=== PATIENT | male | born 2005 | race Caucasian/White ===

== ENCOUNTER 2024-05-09 19:41 | Emergency (ER) | payer MEDICAID, SELFPAY ==
[2024-05-09 19:44] VITALS: BP 119/76; PULSE 81; RESP 18; TEMP 36.6; O2SAT 97; BMI 27.4
--- NOTE | 2024-05-09 20:03 | ED_ITS ---
HPI - Ear Problem General Chief complaint: Ear Problems Stated complaint: R ear clogged Time Seen by Provider: 05/09/24 20:07 Source: patient Mode of arrival: ambulatory Limitations: no limitations History of Present Illness HPI Narrative: Patient is a 18-year-old male who presents to emergency department for evaluation of right ear feeling clogged for 2 days. Has been inserting Q-tips, purchased a your [place] kit from the pharmacy with a plastic curette, but has been unable to clear the ear. No pain. Related Data Previous Rx's ?Medication ?Instructions ?Recorded carbamide peroxide 6.5 % ear drops 5 drp otic (ear) right DAILY 4 05/09/24 (Ear Drops (carbamide peroxide)) days #15 mL Allergies Allergy/AdvReac Type Severity Reaction Status Date / Time No Known Allergies Allergy Verified 05/09/24 19:46 Review of Systems Review of Systems: Yes all other systems are reviewed and are negative PMFSH Past Medical History Attestation statement: The following information was validated with the patient. Source: old records reviewed Social History Social History Do you have a plan to hurt others: No Plan Physical Exam Vital Signs: Vital Signs: Last Vital Signs Temp 98.0 F 05/09/24 20:48 Pulse 72 05/09/24 20:48 Resp 16 05/09/24 20:48 BP 127/65 05/09/24 20:48 Pulse Ox 97 05/09/24 20:48 O2 Del Method Room Air 05/09/24 20:48 BMI result Body Mass Index 27.4 Appearance: Alert.?Oriented to person, place and time. No acute distress.?Normal affect. Eyes: Pupils equal, round and reactive to light.? ENT: Cerumen impaction on the right, no mastoid tenderness. Left TM normal. Neck: Normal inspection.? Neck supple.?? CVS: Heart sounds normal. Normal heart rate and rhythm.? Pulses normal.?? Respiratory: No respiratory distress.? Lung sounds clear to auscultation bilaterally? Skin: Skin warm and dry.? Normal skin color.? Neuro: Moves all extremities spontaneously. Sensation intact bilaterally. Ambulates with normal steady gait. Medications Administered Discontinued Medications Generic Name Dose Route Start Last Admin Trade Name Freq PRN Reason Stop Dose Admin Docusate Sodium 100 mg 05/09/24 20:05 05/09/24 20:10 Docusate Sodium 100 Mg/10 Ml Liquid PO 05/09/24 20:06 100 mg ONCE ONE Administration Medical Decision Making Medical Decision Making [facility] Narrative: Patient is a 18 year male who presents emergency department for evaluation of a clogged sensation to his right as per HPI. On exam cerumen impaction, was unable to alleviate this at home with wax removal kit. Liquid Colace was instilled into the right external ear canal followed by subsequent irrigation on multiple attempts. Unable to remove the cerumen impaction. Unable to access with a curette readily due to the depth., the waxes remains very firm despite cerumenolytic attempt. Patient to be discharged home with Debrox drops to take as prescribed and follow-up with primary care doctor's office for further treatment.. Differential Diagnosis Differential Diagnoses: The differential diagnosis associated with the presentation includes (Cerumen impaction, AOM,) External Record Review External record reviewed: Outpatient record Prescription Management I considered prescription management with: Other (See narrative above) Discharge Plan Discharge Clinical Impression: Cerumen impaction Patient Disposition: Home, Self-Care Additional Instructions: As discussed, use the Debrox ear drops as prescribed. Do not insert anything into the ear canal such as Q-tips or any tools as this may further push down the ball of wax that is present. Contact your primary care doctor's office first thing Sunday morning to schedule a follow-up appointment, they may then tried to beat the ER again Prescriptions: New Ear Drops (carbamide peroxide) 6.5 % drops 5 drp otic (ear) right DAILY 4 Days Qty: 15 0RF Referrals: Maggy Fu MD [Primary Care Provider] - Print Language: Panamanian
[2024-05-09] MEDS: Docusate Sodium 100 MG/10 ML LIQUID PO (20:10)
--- NOTE | 2024-05-09 20:12 | PC.NURSE ---
Assumed care of pt. Applied Colace to ear canal per orders, plugged ear with cotton. Plan for provider to clean ear canal in triage, with DC.
[2024-05-09 20:48] VITALS: BP 127/65; PULSE 72; RESP 16; TEMP 36.7; O2SAT 97
[2024-05-09 21:34] VITALS: BP 127/65; PULSE 72; RESP 16; TEMP 36.7; O2SAT 97
== END 2024-05-09 21:35 | disposition home or self-care (01) ==
PROVIDERS: Emergency Provider Internal Medicine; PCP Pediatrics
DX: H92.01 Otalgia, right ear (principal); H61.21 Impacted cerumen, right ear
CPT/HCPCS: 99283

== ENCOUNTER 2024-08-15 18:02 | Emergency (ER) | payer MEDICAID, SELFPAY ==
[2024-08-15 18:24] VITALS: BP 112/53; PULSE 95; RESP 20; TEMP 36.7; O2SAT 98; BMI 26.6
--- NOTE | 2024-08-15 18:25 | ED.GENADULT ---
HPI - General Adult General Chief complaint: Upper Respiratory Symptoms Stated complaint: headache, sore throat Time Seen by Provider: 08/15/24 22:55 Source: patient Mode of arrival: ambulatory Limitations: no limitations History of Present Illness ED Provider: Dr. Vogt HPI narrative: Patient is 18, no history of illness who presents with URI symptoms for 1 day. Complaining of sore throat, headache, bodyaches. Onset (ago): day(s) Severity: mild Related Data Previous Rx's ?Medication ?Instructions ?Recorded carbamide peroxide 6.5 % ear drops 5 drp otic (ear) right DAILY 4 05/09/24 (Ear Drops (carbamide peroxide)) days #15 mL oxymetazoline 0.05 % nasal mist 2 spray intranasal Q12H PRN nasal 08/15/24 (Afrin (oxymetazoline)) congestion 5 days #15 mL Allergies Allergy/AdvReac Type Severity Reaction Status Date / Time No Known Allergies Allergy Verified 08/15/24 18:26 Review of Systems Review of Systems: Yes all other systems are reviewed and are negative Neurologic: Denies Sensory deficit (Neuro) [facility] Social History Social History Advance Directives: No Advance Directives Information Provided: No Do you have a plan to hurt others: No Plan Physical Exam ED Vital Signs: Vital Signs - 24 hr 08/15/24 18:24 08/15/24 20:52 Temperature 98.1 F 97.9 F Pulse Rate 95 81 Respiratory Rate 20 16 Blood Pressure 112/53 L 125/60 Pulse Oximetry 98 95 Oxygen Delivery Method Room Air Room Air BMI result Body Mass Index 26.6 Const General: healthy appearing Nutritional Appearance: average body habitus Orientation/consciousness: oriented to person and patient oriented x3 Limitations: no limitations HENMT Head: Yes normal to inspection Ears: external ears normal General nose exam: Normal external nose present Mouth: Normal oral and palatal mucosa present and oropharynx normal Throat: Yes posterior oropharynx normal Eyes General: appearance normal, both eyes and all related structures Neck Neck: Yes normal visual inspection Chest Chest palpation & inspection: normal inspection of the chest Resp Auscultation: clear to auscultation bilaterally Cardio Jugular venous distension: no JVD Rate: regular rate Rhythm: regular rhythm Heart sounds: S1 normal heart sound present and S2 normal heart sound present GI Inspection: Yes normal to inspection Palpation (GI): Soft to palpation, nontender and No hepatosplenomegaly present Auscultation: normal bowel sounds General: Yes no CVA tenderness Back/Spine/Pelvis Back: no CVA tenderness Skin General skin exam: no rashes or lesions noted Neuro General: oriented to person and patient oriented x3 Cranial nerves: Yes CN's II-XII intact bilaterally Motor exam (neuro): 5/5 motor strength present throughout Sensory Exam: No Sensory deficit (Neuro) Extrem General: Yes normal to inspection Psych Appearance: grossly normal Course Course Course Narrative: This is a Rapid Medical Examination (RME) performed by Donovan Benitez PA-C in triage. Full HPI, ROS, assessment and treatment plan per primary provider in the Main ED. 18 yo male here for eval of headache, congestions, sore throat, x2 days. taking dayquil/ nyquil, last dose this morning. mom at home is ill with similar symptoms. no other sick contacts. Plan: viral/strep swabs Reevaluation(s) Reevaluation #1: Patient with mild URI will add afrin for his nasal congestion Time: 23:04 Medical Decision Making Differential Diagnosis Differential Diagnoses: The differential diagnosis associated with the presentation includes (Flu, covid, rsv, URI) Lab Data Labs: Lab Results 08/15/24 Range/Units 18:35 Influenza Type A (PCR) NEGATIVE (Negative) Influenza Type B (PCR) NEGATIVE (Negative) RSV RNA Qual (PCR) NEGATIVE (Negative) SARS-CoV-2 RNA (RT-PCR) NEGATIVE (Negative) S. pyogenes GrpA ROSALIE Negative (Negative) Tests considered The following testing was considered but not selected: CXR: considered but no fever normal oxygen, clear lungs Prescription Management I considered prescription management with: Antibiotic (Patient with viral illness, no need for abx) Discharge Plan Discharge Clinical Impression: Upper respiratory infection, Viral infection Patient Disposition: Home, Self-Care Instructions: Upper Respiratory Infection (ED), Viral Syndrome (ED) Prescriptions: New Afrin (oxymetazoline) 0.05 % mist 2 spray intranasal Q12H PRN (Reason: nasal congestion) 5 Days Qty: 15 0RF No Action Ear Drops (carbamide peroxide) 6.5 % drops 5 drp otic (ear) right DAILY 4 Days Qty: 15 0RF Referrals: Maggy Fu MD [Primary Care Provider] - 1 week Stand Alone Forms: Work/School Release Print Language: Ivorian
--- NOTE | 2024-08-15 18:42 | MHC.EDTECH ---
Rsv/covid swab and strep swab collected and sent to lab .
[2024-08-15 18:52] LABS: IDNOW Serial# 58CA691E; Strep A Nucleic Acid Negative (Negative)
[2024-08-15 19:23] LABS: Influenza A PCR NEGATIVE (Negative); Influenza B PCR NEGATIVE (Negative); Resp Syncy Virus RNA Qual PCR NEGATIVE (Negative); SARS COV2 PCR INHOUSE NEGATIVE (Negative)
[2024-08-15 20:52] VITALS: BP 125/60; PULSE 81; RESP 16; TEMP 36.6; O2SAT 95
[2024-08-15 23:32] VITALS: BP 125/60; PULSE 81; RESP 16; TEMP 36.6; O2SAT 95
== END 2024-08-15 23:33 | disposition home or self-care (01) ==
PROVIDERS: Physician Assistant Medical; Emergency Provider Emergency Medicine; PCP Pediatrics
DX: B34.9 Viral infection, unspecified (principal); J06.9 Acute upper respiratory infection, unspecified; R51.9 Headache, unspecified; J02.9 Acute pharyngitis, unspecified; Z03.818 Encounter for observation for suspected exposure to other biological agents ruled out
CPT/HCPCS: 0241U; 87651; 99283